=== PATIENT | female | born 1960 | race Caucasian/White ===

== ENCOUNTER → 2017-03-12 | Outpatient (CLI) | payer BC ==
[~2017-03-12] MED LIST: AUGMENTIN PO; CRESTOR PO; CYMBALTA PO
--- NOTE | ~2017-03-12 | US24 ---
[facility] A Service of [facility] RADIOLOGY TEXT RESULTS PATIENT: DORI KRUGER LOCATION: [facility] : 56 UNIT #: [id number] AGE: [address]: REJI CONSTANTINO APRN SEX: F ORDER DR: [id number] [facility] [address] [place], [place] [address] [id number] O MR#: [id number] Acc #: [id number] NAME: DORI KRUGER : 1960 SEX: F STUDY DATE/TIME: 03/12/2017 13:59 UNIT: [facility] ROOM: STUDY DESCRIPTION: US Breast Unilateral Attending Physician: Reji Constantino Aprn Referring Physician: Reji Constantino Aprn Ordering Physician: Reji Constantino Aprn Primary Care Physician: Reji Constantino Aprn MEDICAL IMAGING REPORT This report is preliminary unless electronic signature is present EXAM Left breast diagnostic ultrasound. 03/12/2017 HISTORY Multiple left breast nodules for which additional sonographic followup was recommended. COMPARISON Bilateral screening mammogram 08/28/2016, left breast diagnostic mammogram and ultrasound 09/25/2016, left breast digital diagnostic mammogram 03/12/2017. FINDINGS Targeted sonographic imaging was performed of the left breast. Please refer to the diagnostic mammogram report from the same day for full description of mammographic and sonographic findings and recommendations. IMPRESSION BIRADS 3. Probably benign findings. Please refer to the diagnostic mammogram report from the same day for full description of mammographic and sonographic findings and recommendations. Patients over the age of 40 are entered into a reminder system with target due date for the next mammogram. A result letter will also be sent to the patient. BIRADS: 3 - Probably benign finding - Short interval followup suggested Dictated by... Zoraida Mulligan M.D. [facility] A Service of [facility] RADIOLOGY TEXT RESULTS PATIENT: DORI KRUGER LOCATION: [facility] : 56 UNIT #: [id number] AGE: [address]: REJI CONSTANTINO APRN SEX: F ORDER DR: THIS IS AN ELECTRONICALLY VERIFIED REPORT Zoraida Mulligan M.D. at 03/13/2017 8:33 AM Allison TD: 03/12/2017 18:34 JOB #: [id number] MEDICAL IMAGING REPORT Page 1 of 1 COPY
--- NOTE | ~2017-03-12 | MY24 ---
[facility] A Service of [facility] RADIOLOGY TEXT RESULTS PATIENT: DORI KRUGER LOCATION: [facility] : 56 UNIT #: [id number] AGE: [address]: REJI CONSTANTINO APRN SEX: F ORDER DR: [id number] [facility] [address] [place], [place] [address] [id number] O MR#: [id number] Acc #: [id number] NAME: DORI KRUGER : 1960 SEX: F STUDY DATE/TIME: 03/12/2017 13:08 UNIT: [facility] ROOM: STUDY DESCRIPTION: ALONSO CARR DIAG W/ CAD UNI LT Attending Physician: Reji Constantino Aprn Referring Physician: Reji Constantino Aprn Ordering Physician: Reji Constantino Aprn Primary Care Physician: Reji Constantino Aprn MEDICAL IMAGING REPORT This report is preliminary unless electronic signature is present EXAM Left digital diagnostic mammogram with CAD 03/12/2017 HISTORY Multiple left breast nodular densities for which additional diagnostic mammogram and ultrasound 6-month followup was recommended. COMPARISON Bilateral screening mammogram 08/28/2016. Left breast digital diagnostic mammogram and ultrasound 09/25/2016. FINDINGS CC, MLO and true ML views were obtained of the left breast utilizing digital technique and reviewed with a FDA-approved CAD device. Scattered fibroglandular densities are present bilaterally. Focal asymmetry measuring approximately 1 cm is demonstrated in the upper outer left breast mid- to posterior third and persists without complete effacement upon spot compression. There are at least 2 additional nodular densities in the inferior left breast close to the 6 o'clock axis which also persist and do not efface upon spot compression, both in the CC and MLO planes. No definite new nodules are seen. There is no architectural distortion. No microcalcification. Targeted diagnostic left breast ultrasound was performed on this same date. In the 1 o'clock axis left breast, 4 cm from the nipple, a 0.6 x 0.3 x 0.5 cm echogenic non-shadowing lesion is seen with tiny internal hypoechogenicity. It is thought to correspond to an area fat necrosis with internal cystic change documented on the 09/25/2016 study, and it is significantly smaller with involution of the central cystic component. On the previous study, it measured 1.2 x 0.5 x 0.9 cm. [facility] A Service of [facility] RADIOLOGY TEXT RESULTS PATIENT: DORI KRUGER LOCATION: [facility] : 56 UNIT #: [id number] AGE: [address]: REJI CONSTANTINO APRN SEX: F ORDER DR: Additionally, the 1 o'clock axis left breast, 6 cm from the nipple, an echogenic, slightly lobulated focus without internal vascularity and without associated architectural distortion is seen, on today's examination measuring 0.7 x 0.7 x 0.9 cm. It measures smaller than on the previous study where was 1.2 x 1.5 x 0.9 cm, and is in keeping with benign finding, such as an area of involuting fat necrosis. In the 7 o'clock axis of the right breast, approximately 7 mm from the nipple, what appears to be benign cluster of microcysts is seen measuring about 7 x 3 x 7 mm, compared to 7 x 3 mm on the previous study, not thought to be significantly changed. Another small cluster of microcysts is seen in the 06:30 position left breast, about 5 cm from the nipple, measuring about 5 mm. It measured about 6 mm, unchanged. No new nodule seen within the left breast. Certainly, no suspicious microcalcification or architectural distortion is seen. IMPRESSION Left breast BIRADS 3. Probably benign findings. There are 2 foci within the left breast at both the 1 o'clock axis, 4 cm from the nipple and 6 meters of nipple, each which appear echogenic, each of which are diminished in size since 09/25/2016, in keeping with benign areas of fat necrosis. What appear to be 2 clusters of microcysts are seen at the inferior left breast in the 6:30 and 7 o'clock positions, as described, approximately stable since the previous study. Patient is advised to return for routine bilateral screening mammogram due at the time of her normal mammogram cycle in August 2017, and diagnostic left breast ultrasound would be advised on that same date to document stability of the left breast findings. Findings and recommendations were discussed with patient today in the radiology department. BIRADS: 3 Probably benign findings; short interval followup suggested. Patients over the age of 40 are entered into a reminder system with target due date for the next mammogram. A result letter will also be sent to the patient. Dictated by... Zoraida Mulligan M.D. THIS IS AN ELECTRONICALLY VERIFIED REPORT Zoraida Mulligan M.D. at 04/22/2017 9:57 PM LLH/pcl TD: 03/12/2017 18:58 JOB #: [id number] [facility] A Service of [facility] RADIOLOGY TEXT RESULTS PATIENT: DORI KRUGER LOCATION: [facility] : 56 UNIT #: [id number] AGE: [address]: REJI CONSTANTINO APRN SEX: F ORDER DR: MEDICAL IMAGING REPORT Page 1 of 1 COPY
== END | disposition home or self-care (01) ==
LOC: CMAM 12:22
DX: R92.8 Other abnormal and inconclusive findings on diagnostic imaging of breast (principal)
CPT/HCPCS: 76641; G0206